=== PATIENT | male | born 1990 | race Caucasian/White ===

== ENCOUNTER 2016-04-04 08:45 | Emergency (ER) | payer BC ==
[~2016-04-04 08:45] MED LIST: ENAL20TA PO; METF-415 PO; PRIL20CA9 PO; PROA1AER INH; novalog
[2016-04-04] MEDS ORDERED: KETOROLAC 30 MG/ML VIAL (J1885) As Ordered ONE (09:39)
[2016-04-04 09:59] LABS: BASO % 0.2 % (0.0-1.0); EOS # 0.1 K/mm3 (0.0-0.50); EOS % 1.1 % (0.0-3.0); LARGE UNSTAINED CELL # 0.2 K/mm3 (0.0-0.4); LARGE UNSTAINED CELL % 1.5 % (0.0-4.0); LYMPH % 20.2 % (24.0-44.0); MEAN CORPUSCULAR HEMOGLOBIN 30.1 pg (27.0-33.0); MEAN CORPUSCULAR HGB CONC 35.5 g/dl (32.0-36.5); MEAN CORPUSCULAR VOLUME 84.8 fl (80.0-96.0); MONO # 0.5 K/mm3 (0.0-0.8); MONO % 5.2 % (0.0-5.0); NEUTROPHILS # 7.1 K/mm3 (1.8-7.7); NEUTROPHILS % 71.7 % (36.0-66.0); PLATELET COUNT, AUTOMATED 263 k/mm3 (150-450); RED CELL DISTRIBUTION WIDTH 12.4 % (11.5-14.5)
[2016-04-04 10:21] LABS: ANION GAP 14 MEQ/L (8-16); BLOOD UREA NITROGEN 9 MG/DL (7-18); CALCIUM LEVEL 9.4 MG/DL (8.5-10.1); CARBON DIOXIDE LEVEL 23 MEQ/L (21-32); CHLORIDE LEVEL 104 MEQ/L (98-107); CREATININE FOR GFR 0.57 MG/DL (0.70-1.30); GLOMERULAR FILTRATION RATE > 60.0 (>60); GLUCOSE, FASTING 148 MG/DL (70-105); MAGNESIUM LEVEL 1.5 MG/DL (1.8-2.4); POTASSIUM SERUM 4.1 MEQ/L (3.5-5.1); SODIUM LEVEL 141 MEQ/L (136-145)
--- NOTE | 2016-04-04 10:29 | REP ---
Clinical: Postoperative pain and swelling . Technique: Ayala scale and color Doppler evaluation using linear high frequency transducer. Findings: Ultrasound examination of the right lower extremity deep venous structures from the common femoral vein to the popliteal vein demonstrates normal compressibility flow and wave patterns in response to respiration and augmentation. There is no evidence for deep venous thrombosis. Impression: No evidence for deep venous thrombosis. Signed by Pierce Trevizo MD 04/04/2016 10:21 A
--- NOTE | 2016-04-04 10:45 | REP ---
RIGHT ANKLE, FOUR VIEWS: HISTORY: Pain. There is no acute fracture or dislocation. The joint space is normal in appearance. IMPRESSION: There is no acute fracture or dislocation. Signed by Mo Gomez MD 04/04/2016 10:46 A
[2016-04-04] MEDS ORDERED: MAGNESIUM SULFATE 1 GM/100 ML D5W BAG (10MG/ML) (J3475) As Ordered ONE (10:49)
[2016-04-04] MEDS ORDERED: methylPREDNISolone INJ 125 MG/2 ML VIAL (J2930) As Ordered ONE (11:25)
[2016-04-04] MEDS ORDERED: NORCO, ANEXSIA 5/325MG TABLET (HYDROcodone/ACETAMINOPHEN) As Ordered ONE (11:25)
--- NOTE | 2016-04-04 13:55 | EDDOCDS ---
Nurse's Notes [facility] Name: Marck Boswell Age: 26 yrs Sex: Male : 1990 Arrival Date: 04/04/2016 Time: 08:45 Bed 7 Private MD: Diagnosis: Gout-right ankle;Pain in right ankle and joints of right foot;Hypomagnesemia Presentation: 04/04 08:56 Presenting complaint: Patient states: patient states his right ankle locked up on him kcs yesterday and he can't walk on it - gold made it worse - heat somewhat better. 3 weeks post gastric bypass and had low magnesium after the bypass. Woke up with the pain initially. Adult Sepsis Screening: The patient does not have new or worsening altered mentation. Patient's respiratory rate is less than 22. Systolic blood pressure is greater than 100. Patient has a qSOFA score of 0- Negative Sepsis Screen. Suicide/Homicide risk assessment- the patient denies having any suicidal and/or homicidal ideations and does not present with any other emotional, behavioral or mental health complaints. Status: Patient is not a sales agent food vending service or dependent. Transition of care: patient was not received from another setting of care. 08:56 Acuity: KASSIDY Level 4 kcs 08:56 Method Of Arrival: Walkin/Carried/Asstd kcs Triage Assessment: 09:03 General: Appears comfortable, well developed, well nourished, well groomed, Behavior is kcs cooperative, pleasant. Pain: Location: right ankle Pain currently is 8 out of 10 on a pain scale. HIV screening NA for this visit Offered previously. Neurological: Level of Consciousness is awake, alert. Respiratory: Airway is patent Respiratory effort is even, unlabored, Respiratory pattern is regular, symmetrical. Derm: Skin is intact, is healthy with good turgor, Skin is dry, Skin is normal. Historical: - Allergies: SULFA (SULFONAMIDES) (Anaphylaxis); Augmentin (Anaphylaxis); PENICILLINS (Anaphylaxis); - Home Meds: 1. enalapril maleate 20 mg Oral tab 1 tab once daily 2. Novolog 100 unit/mL Sub-Q soln before meals sliding scale 3. omeprazole 40 mg Oral cpDR 1 cap once daily 4. multivitamin Oral tab 1 tablet daily 5. Vitamin C 500 mg Oral tab 1,500 mg daily 6. Vitamin B-12 500 mcg Oral tab daily 7. Calcium + Vitamin D 600 mg calcium- 200 unit Oral tab 500 mg daily 8. Vitamin D 2 Oral 44120 unit weekly 9. Iron CR 325 mg Oral daily - PMHx: Diabetes - NIDDM: controlled; Hypertension; GERD; Asthma; - PSHx: Liver Biopsy; cyst removal; Endoscopy, Upper; Gastric Bypass; - Social history: Smoking status: Patient states former smoker of tobacco. No barriers to communication noted, The patient speaks fluent Estonian. - Family history: Not pertinent. - : The pt / caregiver states he / she is not on anticoagulants. Home medication list is obtained from the patient. - Exposure Risk Screening:: None identified. Screenin:40 Screening information is obtained from the patient. Primary language is Estonian. Fall jam1 risk: No risks identified. Assistance ADL's: requires no assistance with activities of daily living. Abuse/DV Screen: The patient / caregiver reports he/she is: not in a situation that causes fear, pain or injury. Nutritional screening: No deficits noted. Exposure Risk Screening: None identified. Advance Directives: Currently, there is no health care proxy. There is no active DNR order. There is no living will. There is no Power of Writer. Advance directive information has not previously been placed in an [facility] record. Further advance directive information is declined. home support is adequate. Assessment: 09:43 General: Appears uncomfortable, Behavior is cooperative. Pain: Location: right Achilles kr3 Pain currently is 8 out of 10 on a pain scale. Aggravated by weight bearing. Respiratory: Respiratory effort is even, unlabored. Derm: Skin is pink, warm & dry. 11:01 General: Received from [facility] via wheelchair. Resp unlabored--color pink. Complains of mcp right foot spasms. IV patent and infusing well--site without any signs of infiltration. . 12:00 General: Appears uncomfortable, Behavior is cooperative. Neurological: No deficits mcp noted. Respiratory: Airway is patent Respiratory effort is even, unlabored. Derm: Skin is pink, warm & dry. Musculoskeletal: Circulation, motion, and sensation intact. 13:00 General: Appears uncomfortable, Behavior is cooperative. Pain: Location: right ankle. mcp Neurological: No deficits noted. Respiratory: Airway is patent Respiratory effort is even, unlabored. Derm: Skin is pink, warm & dry. Musculoskeletal: Circulation, motion, and sensation intact. Vital Signs: 08:50 BP 167 / 76; Pulse 122; Resp 16; Temp 97(O); Pulse Ox 97% ; Weight 94.8 kg; Height 5 cmb ft. 8 in. (172.72 cm); Pain 8/10; 10:59 BP 118 / 55 (auto/); mcp 10:59 Pulse 76 MON; mcp 13:51 BP 128 / 65; Pulse 69; Resp 18; Temp 97.1(O); Pulse Ox 95% on R/A; Pain 5/10; mcp 13:53 Pain 5/10; mcp 08:50 Body Mass Index 31.78 (94.80 kg, 172.72 cm) cmb Vitals: 08:50 Log In Time N/A - ambulance arrival. cmb ED Course: 08:45 Patient visited by Ingrid Hussein, Distance Education Faculty Liaison. deg 08:45 Patient moved to Waiting deg 08:52 Patient moved to Pre RCE cmb 08:59 Triage Initiated kcs 09:04 Patient moved to Triage 3 kcs 09:11 Pricilla Castelan PA-C is PHCP. dt4 09:11 Omar Bob MD is Attending Physician. dt4 09:11 Patient visited by Pricilla Castelan PA-C. dt4 09:29 Patient moved to I5 / M5 kcs 09:38 Uric Acid Sent. kr3 09:38 Creatine Phosphokinase Sent. kr3 09:38 Basic Metabolic Profile Sent. kr3 09:39 CBC with Diff Sent. kr3 09:39 Magnesium Level Sent. kr3 09:39 Inserted saline lock: 20 gauge in left antecubital area and blood collected. The kr3 patient tolerated the procedure well. 09:40 Pt greeted and oriented to ED. Patient advised of names of staff involved in care, jam1 location of call hall, wait times and NPO status. Patient has correct armband on for positive identification. Placed in gown. Bed in low position. Call light in reach. Side rails up X 1. Door closed. 09:43 Patient visited by Giulia Robison RN. kr3 09:44 [facility] Payment Agreement was scanned into [employer] and attached to record. jp5 09:44 The patient / caregiver is instructed regarding the plan of care and ED course. kr3 09:44 No procedures done that require assistance. kr3 10:05 Patient moved to Ultrasound am10 10:19 Patient moved to Radiology am10 10:26 Patient moved to I5 / M5 bh4 10:28 Patient visited by Giulia Robison RN. kr3 10:44 Patient moved to 7 dsf 10:45 Patient visited by Pricilla Castelan PA-C. dt4 10:53 EKG done. (by ED staff). Reviewed by Pricilla Castelan PA-C. ct3 10:55 Patient visited by Aishwarya Zazueta PCA. ct3 10:55 director industrial relations on. Pulse ox on. NIBP on. ct3 11:02 Patient visited by Alicia Garcia RN. mcp 11:02 US Lower Extremity R/O DVT Returned. EDMS 11:02 Ankle, Complete Returned. EDMS 12:08 Patient visited by Gabrielle Jameson PCA. ls3 13:21 Patient visited by Aishwarya Zazueta PCA. ct3 13:25 Your own Physician is Referral Physician. dt4 13:52 Discontinued lock intact, bleeding controlled, pressure dressing applied, No mcp redness/swelling at site. Administered Medications: 09:43 Drug: NS 0.9% 1000 ml [sodium chloride 0.9 % intravenous solution] Route: IV; Rate: kr3 bolus; Site: left antecubital; 09:43 Drug: ketorolac 30 mg [ketorolac 30 mg/mL (1 mL) injection solution (1 mL)] Route: IVP; kr3 Site: left antecubital; 10:28 Follow up: Response: Pain is unchanged, physician notified kr3 11:00 Drug: Magnesium Sulfate 1 grams [magnesium sulfate 1 gram/100 mL in dextrose 5 % mcp intravenous piggyback] {Co-Signature: [email or web address] (Iris Leon RN).} Route: IVPB; Infused Over: 1 hrs; Site: left antecubital; 12:15 Follow up: IV Status: Completed infusion; IV Intake: 100ml mcp 11:33 Drug: Solu-MEDROL 125 mg [Solu-Medrol 500 mg intravenous solution (125 mg)] Route: IVP; mcp Site: left antecubital; 11:33 Drug: HYDROcodone-acetaminophen 1 tabs [hydrocodone 5 mg-acetaminophen 325 mg tablet (1 mcp tabs)] Route: PO; 13:53 Follow up: Pain 07/31 Adult; Response: Pain is decreased mcp Intake: 12:15 IV: 100.00ml; Total: 100.00ml. mcp Order Results: Lab Order: Magnesium Level; SPEC'M 04/04/16 09:37 Test: MAGNESIUM LEVEL; Value: 1.5; Range: 1.8-2.4; Abnormal: Below low normal; Units: MG/DL; Status: F Lab Order: CBC with Diff; SPEC'M 04/04/16 09:37 Test: WHITE BLOOD COUNT; Value: 10.0; Range: 4.0-10.0; Units: K/mm3; Status: F Test: RED BLOOD COUNT; Value: 4.93; Range: 4.30-6.10; Units: M/mm3; Status: F Test: HEMOGLOBIN; Value: 14.8; Range: 14.0-18.0; Units: g/dl; Status: F Test: HEMATOCRIT; Value: 41.8; Range: 42.0-52.0; Abnormal: Below low normal; Units: %; Status: F Test: MEAN CORPUSCULAR VOLUME; Value: 84.8; Range: 80.0-96.0; Units: fl; Status: F Test: MEAN CORPUSCULAR HEMOGLOBIN; Value: 30.1; Range: 27.0-33.0; Units: pg; Status: F Test: MEAN CORPUSCULAR HGB CONC; Value: 35.5; Range: 32.0-36.5; Units: g/dl; Status: F Test: RED CELL DISTRIBUTION WIDTH; Value: 12.4; Range: 11.5-14.5; Units: %; Status: F Test: PLATELET COUNT, AUTOMATED; Value: 263; Range: 150-450; Units: k/mm3; Status: F Test: NEUTROPHILS %; Value: 71.7; Range: 36.0-66.0; Abnormal: Above high normal; Units: %; Status: F Test: LYMPH %; Value: 20.2; Range: 24.0-44.0; Abnormal: Below low normal; Units: %; Status: F Test: MONO %; Value: 5.2; Range: 0.0-5.0; Abnormal: Above high normal; Units: %; Status: F Test: EOS %; Value: 1.1; Range: 0.0-3.0; Units: %; Status: F Test: BASO %; Value: 0.2; Range: 0.0-1.0; Units: %; Status: F Test: LARGE UNSTAINED CELL %; Value: 1.5; Range: 0.0-4.0; Units: %; Status: F Test: NEUTROPHILS #; Value: 7.1; Range: 1.8-7.7; Units: K/mm3; Status: F Test: LYMPH #; Value: 2.0; Range: 1.5-6.5; Units: K/mm3; Status: F Test: MONO #; Value: 0.5; Range: 0.0-0.8; Units: K/mm3; Status: F Test: EOS #; Value: 0.1; Range: 0.0-0.50; Units: K/mm3; Status: F Test: BASO #; Value: 0.0; Range: 0.0-0.2; Units: K/mm3; Status: F Test: LARGE UNSTAINED CELL #; Value: 0.2; Range: 0.0-0.4; Units: K/mm3; Status: F Lab Order: Basic Metabolic Profile; [facility]' 04/04/16 09:37 Test: GLUCOSE, FASTING; Value: 148; Range: 70-105; Abnormal: Above high normal; Units: MG/DL; Status: F Test: BLOOD UREA NITROGEN; Value: 9; Range: 7-18; Units: MG/DL; Status: F Test: CREATININE FOR GFR; Value: 0.57; Range: 0.70-1.30; Abnormal: Below low normal; Units: MG/DL; Status: F Test: GLOMERULAR FILTRATION RATE; Value: > 60.0; Range: >60; Status: F Test: SODIUM LEVEL; Value: 141; Range: 136-145; Units: MEQ/L; Status: F Test: POTASSIUM SERUM; Value: 4.1; Range: 3.5-5.1; Units: MEQ/L; Status: F Test: CHLORIDE LEVEL; Value: 104; Range: 98-107; Units: MEQ/L; Status: F Test: CARBON DIOXIDE LEVEL; Value: 23; Range: 21-32; Units: MEQ/L; Status: F Test: ANION GAP; Value: 14; Range: 8-16; Units: MEQ/L; Status: F Test: CALCIUM LEVEL; Value: 9.4; Range: 8.5-10.1; Units: MG/DL; Status: F Test Note: ; Units are mL/min/1.73 m2 Chronic Kidney Disease Staging per NKF: Stage I & II GFR >=60 Normal to Mildly Decreased Stage III GFR 30-59 Moderately Decreased Stage IV GFR 15-29 Severely Decreased Stage V GFR <15 Very Little GFR Left ESRD GFR <15 on ATTENDANT ARCADE Lab Order: Creatine Phosphokinase; SPEC'M 04/04/16 09:37 Test: CPK CREATINE PHOSPHOKINASE; Value: 33; Range: 39-308; Abnormal: Below low normal; Units: U/L; Status: F Lab Order: Uric Acid; SPEC'M 04/04/16 09:37 Test: URIC ACID; Value: 10.9; Range: 3.5-7.2; Abnormal: Above high normal; Units: MG/DL; Status: F Lab Order: Magnesium Level: PLEASE REDRAW AFTER MAG INFUSION. THANK YOU.; SPEC'M 04/04/16 12:51 Test: MAGNESIUM LEVEL; Value: 1.8; Range: 1.8-2.4; Units: MG/DL; Status: F Radiology Order: US Lower Extremity R/O DVT Test: US Lower Extremity R/O DVT REASON FOR EXAMINATION: RIGHT ANKLE PAIN, POST-OP; Clinical: Postoperative pain and swelling .; ; Technique: Ayala scale and color Doppler evaluation using linear high frequency; transducer.; ; Findings:; Ultrasound examination of the right lower extremity deep venous structures from; the common femoral vein to the popliteal vein demonstrates normal compressibility; flow and wave patterns in response to respiration and augmentation. There is no; evidence for deep venous thrombosis.; ; Impression:; No evidence for deep venous thrombosis.; ; ; Signed by; Pierce Trevizo MD 04/04/2016 10:21 A; Radiology Order: Ankle, Complete Test: Ankle, Complete REASON FOR EXAMINATION: RIGHT ANKLE PAIN; RIGHT ANKLE, FOUR VIEWS:; ; HISTORY: Pain.; ; There is no acute fracture or dislocation. The joint space is normal in; appearance.; ; IMPRESSION:; ; There is no acute fracture or dislocation.; ; ; Signed by; Mo Gomez MD 04/04/2016 10:46 A; Outcome: 13:26 Discharge ordered by Provider. dt4 13:52 Discharge Assessment: patient administered narcotics - yes. Pt provided with safe mcp discharge. The following High Risk Discharge criteria are identified: None. Discharged to home ambulatory, with crutches, with significant other. Condition: stable. Discharge instructions given to patient, Instructed on discharge instructions, follow up and referral plans. medication usage, crutch walking, Demonstrated understanding of instructions, crutch walking, Pt was receptive of discharge instructions/ teaching. Prescriptions given X 2. No special radiology studies were completed. Property sent home with patient. 13:53 Patient left the ED. [facility] Signatures: Dispatcher [employer] EDMS Lindsey Arriaga, RN RN Ingrid De Souza, Distance Education Faculty Liaison Unit deg Alicia Garcia RN RN mcp Murphy, Jane, SUSTAINABILITY SPECIALIST SUSTAINABILITY SPECIALIST jam1 Giulia RobisonRN RN kr3 Elsie Cuevas am10 Robson, Ketty bh4 Aishwarya Zazueta, SUSTAINABILITY SPECIALIST SUSTAINABILITY SPECIALIST ct3 Temi Hull,RN RN dsf Nettie Roberts cmPricilla Larose, PA-C PA-C dt4 Dionisio Etienne jp5 Gabrielle Jameson, SUSTAINABILITY SPECIALIST SUSTAINABILITY SPECIALIST ls3 Iris Leon RN [email or web address] Corrections: (The following items were deleted from the chart) 13:52 09:43 Pain: Location: left Achilles Pain currently is 8 out of 10 on a pain scale. kr3 Aggravated by weight bearing, kr3 MTDD
--- NOTE | 2016-04-04 13:55 | EDDOCDS ---
Physician Documentation [facility] Name: Marck Boswell Age: 26 yrs Sex: Male : 1990 Arrival Date: 04/04/2016 Time: 08:45 Bed 7 Private MD: Disposition: 04/04/16 13:26 Discharged to Home/Self Care. Impression: Gout - right ankle, Pain in right ankle and joints of right foot, Hypomagnesemia. - Condition is Stable. - Discharge Instructions: Gout, Hypomagnesemia. - Prescriptions for [place] 5- 325 mg Oral Tablet - take 1 tablet by ORAL route every 6 hours As needed MDD: 4 tabs; may cause drowsiness. do not take if working/driving/operating machinery; 15 tablet. Prednisone 20 mg Oral Tablet - take 3 tablets by ORAL route once daily for 4 days start on 04/05/16; 12 tablet. - Medication Reconciliation, Local Pharmacy Hours form. - Follow up: Emergency Department; When: As needed; Reason: Worsening of conditions. Follow up: Your own Physician; When: 2 - 3 days; Reason: Wound/Symptom Recheck, Recheck today's complaints, Continuance of care. - Problem is new. - Symptoms have improved. Historical: - Allergies: SULFA (SULFONAMIDES) (Anaphylaxis); Augmentin (Anaphylaxis); PENICILLINS (Anaphylaxis); - Home Meds: 1. enalapril maleate 20 mg Oral tab 1 tab once daily 2. Novolog 100 unit/mL Sub-Q soln before meals sliding scale 3. omeprazole 40 mg Oral cpDR 1 cap once daily 4. multivitamin Oral tab 1 tablet daily 5. Vitamin C 500 mg Oral tab 1,500 mg daily 6. Vitamin B-12 500 mcg Oral tab daily 7. Calcium + Vitamin D 600 mg calcium- 200 unit Oral tab 500 mg daily 8. Vitamin D 2 Oral 70627 unit weekly 9. Iron CR 325 mg Oral daily - PMHx: Diabetes - NIDDM: controlled; Hypertension; GERD; Asthma; - PSHx: Liver Biopsy; cyst removal; Endoscopy, Upper; Gastric Bypass; - Social history: Smoking status: Patient states former smoker of tobacco. No barriers to communication noted, The patient speaks fluent Arabic. - Family history: Not pertinent. - : The pt / caregiver states he / she is not on anticoagulants. Home medication list is obtained from the patient. - Exposure Risk Screening:: None identified. Vital Signs: 04/04 08:50 BP 167 / 76; Pulse 122; Resp 16; Temp 97(O); Pulse Ox 97% ; Weight 94.8 kg / 209 lbs; cmb Height 5 ft. 8 in. (172.72 cm); Pain 8/10; 10:59 BP 118 / 55 (auto/); mcp 10:59 Pulse 76 MON; mcp 13:51 BP 128 / 65; Pulse 69; Resp 18; Temp 97.1(O); Pulse Ox 95% on R/A; Pain 5/10; mcp 13:53 Pain 5/10; mcp 08:50 Body Mass Index 31.78 (94.80 kg, 172.72 cm) cmb MDM: 09:27 IV Saline Lock ordered. dt4 09:27 NS 0.9% 1000 ml IV at bolus once ordered. dt4 09:27 ketorolac 30 mg IVP once ordered. dt4 09:28 Magnesium Level Ordered. EDMS 09:28 CBC with Diff Ordered. EDMS 09:28 Basic Metabolic Profile Ordered. EDMS 09:28 Creatine Phosphokinase Ordered. EDMS 09:28 Uric Acid Ordered. EDMS 09:28 US Lower Extremity R/O DVT Ordered. EDMS 09:28 Ankle, Complete Ordered. EDMS 09:39 Financial registration complete. lg 09:44 [facility] Payment Agreement was scanned into [employer] and attached to record. jp5 10:42 [employer] ordered. dt4 10:42 Magnesium Sulfate 1 grams IVPB once over 1 hrs; administer over at least 1 hour ordered.dt4 10:43 Magnesium Level Reviewed. dt4 10:43 CBC with Diff Reviewed. dt4 10:43 Basic Metabolic Profile Reviewed. dt4 10:43 Creatine Phosphokinase Reviewed. dt4 10:43 Uric Acid Reviewed. dt4 10:44 ECG WITH READING ER PHYS+CARDIAG ordered. EDMS 11:09 Magnesium Level: PLEASE REDRAW AFTER MAG INFUSION. THANK YOU. Ordered. EDMS 11:24 Solu-MEDROL 125 mg IVP once ordered. dt4 11:24 HYDROcodone-acetaminophen 5 mg-325 mg 1 tabs PO once ordered. dt4 13:33 Crutches ordered. dt4 Administered Medications: 09:43 Drug: NS 0.9% 1000 ml [sodium chloride 0.9 % intravenous solution] Route: IV; Rate: kr3 bolus; Site: left antecubital; 09:43 Drug: ketorolac 30 mg [ketorolac 30 mg/mL (1 mL) injection solution (1 mL)] Route: IVP; kr3 Site: left antecubital; 10:28 Follow up: Response: Pain is unchanged, physician notified kr3 11:00 Drug: Magnesium Sulfate 1 grams [magnesium sulfate 1 gram/100 mL in dextrose 5 % mcp intravenous piggyback] {Co-Signature: [email or web address] (Iris Leon RN).} Route: IVPB; Infused Over: 1 hrs; Site: left antecubital; 12:15 Follow up: IV Status: Completed infusion; IV Intake: 100ml mcp 11:33 Drug: Solu-MEDROL 125 mg [Solu-Medrol 500 mg intravenous solution (125 mg)] Route: IVP; mcp Site: left antecubital; 11:33 Drug: HYDROcodone-acetaminophen 1 tabs [hydrocodone 5 mg-acetaminophen 325 mg tablet (1 mcp tabs)] Route: PO; 13:53 Follow up: Pain 5/10 Adult; Response: Pain is decreased [facility] Signatures: Dispatcher [employer] EDMS Lindsey Arriaga RN RN kcs Peters, Mary, RN RN mcp Ganter, LoriLee, Reg Reg lg Tschudi, Diane, PA-C PA-C dt4 Dionisio Etienne jp5 Giulia Robison RN kr3 Iris Leon RN [email or web address] The chart was reviewed and I authenticate all verbal orders and agree with the evaluation and treatment provided.Corrections: (The following items were deleted from the chart) 10:57 10:50 MAGNESIUM LEVEL+LAB ordered. EDMS EDMS Attachments: 09:44 [facility] Payment Agreement jp5 MTDD
--- NOTE | 2016-04-05 07:24 | ECGEPIP ---
Stationary ECG Study [facility] - ED Test Date: 2016-04-04 Pat Name: GRACIE DIAS Department: Room: - Gender: M Leasing Coordinator: ct : 1990 Requested By: FROYLAN Yan PA-C Order Number: [id number] Reading MD: Guerline Otero Measurements Intervals [place] Rate: 79 P: 20 ND: 146 QRS: 38 QRSD: 94 T: -6 QT: 356 QTc: 409 Interpretive Statements SINUS RHYTHM NONSPECIFIC T-WAVE ABNORMALITY SIMILAR 01/11/16 Electronically Signed On 04-05-2016 7:23:47 EST by Guerline Otero
--- NOTE | 2016-04-06 14:54 | EDDOCDS ---
Physician Documentation [facility] Name: Marck Boswell Age: 26 yrs Sex: Male : 1990 Arrival Date: 04/04/2016 Time: 08:45 Bed 7 Private MD: Disposition: 04/04/16 13:26 Discharged to Home/Self Care. Impression: Gout - right ankle, Pain in right ankle and joints of right foot, Hypomagnesemia. - Condition is Stable. - Discharge Instructions: Gout, Hypomagnesemia. - Prescriptions for [place] 5- 325 mg Oral Tablet - take 1 tablet by ORAL route every 6 hours As needed MDD: 4 tabs; may cause drowsiness. do not take if working/driving/operating machinery; 15 tablet. Prednisone 20 mg Oral Tablet - take 3 tablets by ORAL route once daily for 4 days start on 04/05/16; 12 tablet. - Medication Reconciliation, Local Pharmacy Hours form. - Follow up: Emergency Department; When: As needed; Reason: Worsening of conditions. Follow up: Your own Physician; When: 2 - 3 days; Reason: Wound/Symptom Recheck, Recheck today's complaints, Continuance of care. - Problem is new. - Symptoms have improved. Historical: - Allergies: SULFA (SULFONAMIDES) (Anaphylaxis); Augmentin (Anaphylaxis); PENICILLINS (Anaphylaxis); - Home Meds: 1. enalapril maleate 20 mg Oral tab 1 tab once daily 2. Novolog 100 unit/mL Sub-Q soln before meals sliding scale 3. omeprazole 40 mg Oral cpDR 1 cap once daily 4. multivitamin Oral tab 1 tablet daily 5. Vitamin C 500 mg Oral tab 1,500 mg daily 6. Vitamin B-12 500 mcg Oral tab daily 7. Calcium + Vitamin D 600 mg calcium- 200 unit Oral tab 500 mg daily 8. Vitamin D 2 Oral 52827 unit weekly 9. Iron CR 325 mg Oral daily - PMHx: Diabetes - NIDDM: controlled; Hypertension; GERD; Asthma; - PSHx: Liver Biopsy; cyst removal; Endoscopy, Upper; Gastric Bypass; - Social history: Smoking status: Patient states former smoker of tobacco. No barriers to communication noted, The patient speaks fluent Frisian. - Family history: Not pertinent. - : The pt / caregiver states he / she is not on anticoagulants. Home medication list is obtained from the patient. - Exposure Risk Screening:: None identified. Vital Signs: 04/04 08:50 BP 167 / 76; Pulse 122; Resp 16; Temp 97(O); Pulse Ox 97% ; Weight 94.8 kg / 209 lbs; cmb Height 5 ft. 8 in. (172.72 cm); Pain 8/10; 10:59 BP 118 / 55 (auto/); mcp 10:59 Pulse 76 MON; mcp 13:51 BP 128 / 65; Pulse 69; Resp 18; Temp 97.1(O); Pulse Ox 95% on R/A; Pain 5/10; mcp 13:53 Pain 5/10; mcp 08:50 Body Mass Index 31.78 (94.80 kg, 172.72 cm) cmb MDM: 09:27 IV Saline Lock ordered. dt4 09:27 NS 0.9% 1000 ml IV at bolus once ordered. dt4 09:27 ketorolac 30 mg IVP once ordered. dt4 09:28 Magnesium Level Ordered. EDMS 09:28 CBC with Diff Ordered. EDMS 09:28 Basic Metabolic Profile Ordered. EDMS 09:28 Creatine Phosphokinase Ordered. EDMS 09:28 Uric Acid Ordered. EDMS 09:28 US Lower Extremity R/O DVT Ordered. EDMS 09:28 Ankle, Complete Ordered. EDMS 09:39 Financial registration complete. lg 09:44 [facility] Payment Agreement was scanned into [employer] and attached to record. jp5 10:42 Cost Reduction Engineer ordered. dt4 10:42 Magnesium Sulfate 1 grams IVPB once over 1 hrs; administer over at least 1 hour ordered.dt4 10:43 Magnesium Level Reviewed. dt4 10:43 CBC with Diff Reviewed. dt4 10:43 Basic Metabolic Profile Reviewed. dt4 10:43 Creatine Phosphokinase Reviewed. dt4 10:43 Uric Acid Reviewed. dt4 10:44 ECG WITH READING ER PHYS+CARDIAG ordered. EDMS 11:09 Magnesium Level: PLEASE REDRAW AFTER MAG INFUSION. THANK YOU. Ordered. EDMS 11:24 Solu-MEDROL 125 mg IVP once ordered. dt4 11:24 HYDROcodone-acetaminophen 5 mg-325 mg 1 tabs PO once ordered. dt4 13:33 Crutches ordered. dt4 04/05 11:51 T-Sheet-- Draft Copy was scanned into MEDHOST and attached to record. gb 11:51 ECG/EKG was scanned into [employer] and attached to record. 11:52 Radiology Report was scanned into [employer] and attached to record. gb Administered Medications: 04/04 09:43 Drug: NS 0.9% 1000 ml [sodium chloride 0.9 % intravenous solution] Route: IV; Rate: kr3 bolus; Site: left antecubital; 09:43 Drug: ketorolac 30 mg [ketorolac 30 mg/mL (1 mL) injection solution (1 mL)] Route: IVP; kr3 Site: left antecubital; 10:28 Follow up: Response: Pain is unchanged, physician notified kr3 11:00 Drug: Magnesium Sulfate 1 grams [magnesium sulfate 1 gram/100 mL in dextrose 5 % mcp intravenous piggyback] {Co-Signature: [email or web address] (Iris Leon RN).} Route: IVPB; Infused Over: 1 hrs; Site: left antecubital; 12:15 Follow up: IV Status: Completed infusion; IV Intake: 100ml [facility] 11:33 Drug: Solu-MEDROL 125 mg [Solu-Medrol 500 mg intravenous solution (125 mg)] Route: IVP; mcp Site: left antecubital; 11:33 Drug: HYDROcodone-acetaminophen 1 tabs [hydrocodone 5 mg-acetaminophen 325 mg tablet (1 mcp tabs)] Route: PO; 13:53 Follow up: Pain 5/10 Adult; Response: Pain is decreased [facility] Signatures: Dispatcher [employer] EDMS Lindsey Arriaga RN RN kcs Peters, Mary, RN RN [facility] Rafaela Viveros, Reg Reg gb Sanjay Mitchell, Reg Reg lg Pricilla Castelan, PA-C PA-C [email or web address] Dionisio Etienne jp5 Giulia Robison RN kr3 Iris Leon RN [email or web address] The chart was reviewed and I authenticate all verbal orders and agree with the evaluation and treatment provided.Corrections: (The following items were deleted from the chart) 10:57 10:50 MAGNESIUM LEVEL+LAB ordered. EDGA EDMS Attachments: 09:44 [facility] Payment Agreement jp5 04/05 11:51 T-Sheet-- Draft Copy 11:51 ECG/EKG Chart Complete MTDD
--- NOTE | 2016-04-06 14:54 | EDDOCDS ---
Nurse's Notes [facility] Name: Marck Boswell Age: 26 yrs Sex: Male : 1990 Arrival Date: 04/04/2016 Time: 08:45 Bed 7 Private MD: Diagnosis: Gout-right ankle;Pain in right ankle and joints of right foot;Hypomagnesemia Presentation: 04/04 08:56 Presenting complaint: Patient states: patient states his right ankle locked up on him kcs yesterday and he can't walk on it - gold made it worse - heat somewhat better. 3 weeks post gastric bypass and had low magnesium after the bypass. Woke up with the pain initially. Adult Sepsis Screening: The patient does not have new or worsening altered mentation. Patient's respiratory rate is less than 22. Systolic blood pressure is greater than 100. Patient has a qSOFA score of 0- Negative Sepsis Screen. Suicide/Homicide risk assessment- the patient denies having any suicidal and/or homicidal ideations and does not present with any other emotional, behavioral or mental health complaints. Status: Patient is not a pharmaceutical service representative or dependent. Transition of care: patient was not received from another setting of care. 08:56 Acuity: KASSIDY Level 4 kcs 08:56 Method Of Arrival: Walkin/Carried/Asstd kcs Triage Assessment: 09:03 General: Appears comfortable, well developed, well nourished, well groomed, Behavior is kcs cooperative, pleasant. Pain: Location: right ankle Pain currently is 8 out of 10 on a pain scale. HIV screening NA for this visit Offered previously. Neurological: Level of Consciousness is awake, alert. Respiratory: Airway is patent Respiratory effort is even, unlabored, Respiratory pattern is regular, symmetrical. Derm: Skin is intact, is healthy with good turgor, Skin is dry, Skin is normal. Historical: - Allergies: SULFA (SULFONAMIDES) (Anaphylaxis); Augmentin (Anaphylaxis); PENICILLINS (Anaphylaxis); - Home Meds: 1. enalapril maleate 20 mg Oral tab 1 tab once daily 2. Novolog 100 unit/mL Sub-Q soln before meals sliding scale 3. omeprazole 40 mg Oral cpDR 1 cap once daily 4. multivitamin Oral tab 1 tablet daily 5. Vitamin C 500 mg Oral tab 1,500 mg daily 6. Vitamin B-12 500 mcg Oral tab daily 7. Calcium + Vitamin D 600 mg calcium- 200 unit Oral tab 500 mg daily 8. Vitamin D 2 Oral 49704 unit weekly 9. Iron CR 325 mg Oral daily - PMHx: Diabetes - NIDDM: controlled; Hypertension; GERD; Asthma; - PSHx: Liver Biopsy; cyst removal; Endoscopy, Upper; Gastric Bypass; - Social history: Smoking status: Patient states former smoker of tobacco. No barriers to communication noted, The patient speaks fluent Turkmen. - Family history: Not pertinent. - : The pt / caregiver states he / she is not on anticoagulants. Home medication list is obtained from the patient. - Exposure Risk Screening:: None identified. Screenin:40 Screening information is obtained from the patient. Primary language is Turkmen. Fall jam1 risk: No risks identified. Assistance ADL's: requires no assistance with activities of daily living. Abuse/DV Screen: The patient / caregiver reports he/she is: not in a situation that causes fear, pain or injury. Nutritional screening: No deficits noted. Exposure Risk Screening: None identified. Advance Directives: Currently, there is no health care proxy. There is no active DNR order. There is no living will. There is no Power of Willow Machine Operator. Advance directive information has not previously been placed in an [facility] medical record. Further advance directive information is declined. home support is adequate. Assessment: 09:43 General: Appears uncomfortable, Behavior is cooperative. Pain: Location: right Achilles kr3 Pain currently is 8 out of 10 on a pain scale. Aggravated by weight bearing. Respiratory: Respiratory effort is even, unlabored. Derm: Skin is pink, warm & dry. 11:01 General: Received from [facility] via wheelchair. Resp unlabored--color pink. Complains of mcp right foot spasms. IV patent and infusing well--site without any signs of infiltration. . 12:00 General: Appears uncomfortable, Behavior is cooperative. Neurological: No deficits mcp noted. Respiratory: Airway is patent Respiratory effort is even, unlabored. Derm: Skin is pink, warm & dry. Musculoskeletal: Circulation, motion, and sensation intact. 13:00 General: Appears uncomfortable, Behavior is cooperative. Pain: Location: right ankle. mcp Neurological: No deficits noted. Respiratory: Airway is patent Respiratory effort is even, unlabored. Derm: Skin is pink, warm & dry. Musculoskeletal: Circulation, motion, and sensation intact. Vital Signs: 08:50 BP 167 / 76; Pulse 122; Resp 16; Temp 97(O); Pulse Ox 97% ; Weight 94.8 kg; Height 5 cmb ft. 8 in. (172.72 cm); Pain 8/10; 10:59 BP 118 / 55 (auto/); mcp 10:59 Pulse 76 MON; mcp 13:51 BP 128 / 65; Pulse 69; Resp 18; Temp 97.1(O); Pulse Ox 95% on R/A; Pain 5/10; mcp 13:53 Pain 5/10; mcp 08:50 Body Mass Index 31.78 (94.80 kg, 172.72 cm) cmb Vitals: 08:50 Log In Time N/A - ambulance arrival. cmb ED Course: 08:45 Patient visited by Ingrid Hussein, Roof Assembler. deg 08:45 Patient moved to Waiting deg 08:52 Patient moved to Pre RCE cmb 08:59 Triage Initiated kcs 09:04 Patient moved to Triage 3 kcs 09:11 Pricilla Castelan PA-C is PHCP. dt4 09:11 Omar Bob MD is Attending Physician. dt4 09:11 Patient visited by Pricilla Castelan PA-C. dt4 09:29 Patient moved to I5 / M5 kcs 09:38 Uric Acid Sent. kr3 09:38 Creatine Phosphokinase Sent. kr3 09:38 Basic Metabolic Profile Sent. kr3 09:39 CBC with Diff Sent. kr3 09:39 Magnesium Level Sent. kr3 09:39 Inserted saline lock: 20 gauge in left antecubital area and blood collected. The kr3 patient tolerated the procedure well. 09:40 Pt greeted and oriented to ED. Patient advised of names of staff involved in care, jam1 location of call hall, wait times and NPO status. Patient has correct armband on for positive identification. Placed in gown. Bed in low position. Call light in reach. Side rails up X 1. Door closed. 09:43 Patient visited by Giulia Robison RN. kr3 09:44 [facility] [place] Agreement was scanned into [employer] and attached to record. jp5 09:44 The patient / caregiver is instructed regarding the plan of care and ED course. kr3 09:44 No procedures done that require assistance. kr3 10:05 Patient moved to Ultrasound am10 10:19 Patient moved to Radiology am10 10:26 Patient moved to I5 / M5 bh4 10:28 Patient visited by Giulia Robison RN. kr3 10:44 Patient moved to 7 dsf 10:45 Patient visited by Pricilla Castelan PA-C. dt4 10:53 EKG done. (by ED staff). Reviewed by Pricilla Castelan PA-C. ct3 10:55 Patient visited by Aishwarya Zazueta PCA. ct3 10:55 monitoring coordinator on. Pulse ox on. NIBP on. ct3 11:02 Patient visited by Aliica Garcia RN. mcp 11:02 US Lower Extremity R/O DVT Returned. EDMS 11:02 Ankle, Complete Returned. EDMS 12:08 Patient visited by Gabrielle Jameson PCA. ls3 13:21 Patient visited by Aishwarya Zazueta PCA. ct3 13:25 Your own Physician is Referral Physician. dt4 13:52 Discontinued lock intact, bleeding controlled, pressure dressing applied, No mcp redness/swelling at site. 04/05 07:41 EKG-ADULT Returned. EDMS 11:51 T-Sheet-- Draft Copy was scanned into [employer] and attached to record. gb 11:51 ECG/EKG was scanned into [employer] and attached to record. gb 11:52 Radiology Report was scanned into [employer] and attached to record. gb Administered Medications: 04/04 09:43 Drug: NS 0.9% 1000 ml [sodium chloride 0.9 % intravenous solution] Route: IV; Rate: kr3 bolus; Site: left antecubital; 09:43 Drug: ketorolac 30 mg [ketorolac 30 mg/mL (1 mL) injection solution (1 mL)] Route: IVP; kr3 Site: left antecubital; 10:28 Follow up: Response: Pain is unchanged, physician notified kr3 11:00 Drug: Magnesium Sulfate 1 grams [magnesium sulfate 1 gram/100 mL in dextrose 5 % mcp intravenous piggyback] {Co-Signature: [email or web address] (Iris Leon RN).} Route: IVPB; Infused Over: 1 hrs; Site: left antecubital; 12:15 Follow up: IV Status: Completed infusion; IV Intake: 100ml [facility] 11:33 Drug: Solu-MEDROL 125 mg [Solu-Medrol 500 mg intravenous solution (125 mg)] Route: IVP; mcp Site: left antecubital; 11:33 Drug: HYDROcodone-acetaminophen 1 tabs [hydrocodone 5 mg-acetaminophen 325 mg tablet (1 mcp tabs)] Route: PO; 13:53 Follow up: Pain 07/31 Adult; Response: Pain is decreased mcp Intake: 12:15 IV: 100.00ml; Total: 100.00ml. mcp Order Results: Lab Order: Magnesium Level; SPEC'M 04/04/16 09:37 Test: MAGNESIUM LEVEL; Value: 1.5; Range: 1.8-2.4; Abnormal: Below low normal; Units: MG/DL; Status: F Lab Order: CBC with Diff; SPEC'M 04/04/16 09:37 Test: WHITE BLOOD COUNT; Value: 10.0; Range: 4.0-10.0; Units: K/mm3; Status: F Test: RED BLOOD COUNT; Value: 4.93; Range: 4.30-6.10; Units: M/mm3; Status: F Test: HEMOGLOBIN; Value: 14.8; Range: 14.0-18.0; Units: g/dl; Status: F Test: HEMATOCRIT; Value: 41.8; Range: 42.0-52.0; Abnormal: Below low normal; Units: %; Status: F Test: MEAN CORPUSCULAR VOLUME; Value: 84.8; Range: 80.0-96.0; Units: fl; Status: F Test: MEAN CORPUSCULAR HEMOGLOBIN; Value: 30.1; Range: 27.0-33.0; Units: pg; Status: F Test: MEAN CORPUSCULAR HGB CONC; Value: 35.5; Range: 32.0-36.5; Units: g/dl; Status: F Test: RED CELL DISTRIBUTION WIDTH; Value: 12.4; Range: 11.5-14.5; Units: %; Status: F Test: PLATELET COUNT, AUTOMATED; Value: 263; Range: 150-450; Units: k/mm3; Status: F Test: NEUTROPHILS %; Value: 71.7; Range: 36.0-66.0; Abnormal: Above high normal; Units: %; Status: F Test: LYMPH %; Value: 20.2; Range: 24.0-44.0; Abnormal: Below low normal; Units: %; Status: F Test: MONO %; Value: 5.2; Range: 0.0-5.0; Abnormal: Above high normal; Units: %; Status: F Test: EOS %; Value: 1.1; Range: 0.0-3.0; Units: %; Status: F Test: BASO %; Value: 0.2; Range: 0.0-1.0; Units: %; Status: F Test: LARGE UNSTAINED CELL %; Value: 1.5; Range: 0.0-4.0; Units: %; Status: F Test: NEUTROPHILS #; Value: 7.1; Range: 1.8-7.7; Units: K/mm3; Status: F Test: LYMPH #; Value: 2.0; Range: 1.5-6.5; Units: K/mm3; Status: F Test: MONO #; Value: 0.5; Range: 0.0-0.8; Units: K/mm3; Status: F Test: EOS #; Value: 0.1; Range: 0.0-0.50; Units: K/mm3; Status: F Test: BASO #; Value: 0.0; Range: 0.0-0.2; Units: K/mm3; Status: F Test: LARGE UNSTAINED CELL #; Value: 0.2; Range: 0.0-0.4; Units: K/mm3; Status: F Lab Order: Basic Metabolic Profile; SPEC'M 04/04/16 09:37 Test: GLUCOSE, FASTING; Value: 148; Range: 70-105; Abnormal: Above high normal; Units: MG/DL; Status: F Test: BLOOD UREA NITROGEN; Value: 9; Range: 7-18; Units: MG/DL; Status: F Test: CREATININE FOR GFR; Value: 0.57; Range: 0.70-1.30; Abnormal: Below low normal; Units: MG/DL; Status: F Test: GLOMERULAR FILTRATION RATE; Value: > 60.0; Range: >60; Status: F Test: SODIUM LEVEL; Value: 141; Range: 136-145; Units: MEQ/L; Status: F Test: POTASSIUM SERUM; Value: 4.1; Range: 3.5-5.1; Units: MEQ/L; Status: F Test: CHLORIDE LEVEL; Value: 104; Range: 98-107; Units: MEQ/L; Status: F Test: CARBON DIOXIDE LEVEL; Value: 23; Range: 21-32; Units: MEQ/L; Status: F Test: ANION GAP; Value: 14; Range: 8-16; Units: MEQ/L; Status: F Test: CALCIUM LEVEL; Value: 9.4; Range: 8.5-10.1; Units: MG/DL; Status: F Test Note: ; Units are mL/min/1.73 m2 Chronic Kidney Disease Staging per NKF: Stage I & II GFR >=60 Normal to Mildly Decreased Stage III GFR 30-59 Moderately Decreased Stage IV GFR 15-29 Severely Decreased Stage V GFR <15 Very Little GFR Left ESRD GFR <15 on VOLLEYBALL ASSEMBLER Lab Order: Creatine Phosphokinase; SPEC'M 04/04/16 09:37 Test: CPK CREATINE PHOSPHOKINASE; Value: 33; Range: 39-308; Abnormal: Below low normal; Units: U/L; Status: F Lab Order: Uric Acid; SPEC'M 04/04/16 09:37 Test: URIC ACID; Value: 10.9; Range: 3.5-7.2; Abnormal: Above high normal; Units: MG/DL; Status: F Lab Order: Magnesium Level: PLEASE REDRAW AFTER MAG INFUSION. THANK YOU.; SPEC'M 04/04/16 12:51 Test: MAGNESIUM LEVEL; Value: 1.8; Range: 1.8-2.4; Units: MG/DL; Status: F Radiology Order: US Lower Extremity R/O DVT Test: US Lower Extremity R/O DVT REASON FOR EXAMINATION: RIGHT ANKLE PAIN, POST-OP; Clinical: Postoperative pain and swelling .; ; Technique: Ayala scale and color Doppler evaluation using linear high frequency; transducer.; ; Findings:; Ultrasound examination of the right lower extremity deep venous structures from; the common femoral vein to the popliteal vein demonstrates normal compressibility; flow and wave patterns in response to respiration and augmentation. There is no; evidence for deep venous thrombosis.; ; Impression:; No evidence for deep venous thrombosis.; ; ; Signed by; Pierce Trevizo MD 04/04/2016 10:21 A; Radiology Order: Ankle, Complete Test: Ankle, Complete REASON FOR EXAMINATION: RIGHT ANKLE PAIN; RIGHT ANKLE, FOUR VIEWS:; ; HISTORY: Pain.; ; There is no acute fracture or dislocation. 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 dt4 13:52 Discharge Assessment: patient administered narcotics - yes. Pt provided with safe mcp discharge. The following High Risk Discharge criteria are identified: None. Discharged to home ambulatory, with crutches, with significant other. Condition: stable. Discharge instructions given to patient, Instructed on discharge instructions, follow up and referral plans. medication usage, crutch walking, Demonstrated understanding of instructions, crutch walking, Pt was receptive of discharge instructions/ teaching. Prescriptions given X 2. No special radiology studies were completed. Property sent home with patient. 13:53 Patient left the ED. [facility] Signatures: Dispatcher [employer] EDLindsey Jama, RN RN Ingrid De Souza, Roof Assembler Unit deg Alicia Garcia RN RN mcp Murphy, Jane, JENNIFER COMPUTER PROJECT MANAGER jam1 Rafaela Viveros, Reg Reg Giulia Daniels RN RN kr3 Elsie Cuevas am10 Ketty Chance bh4 Aishwarya Zazueta, COMPUTER PROJECT MANAGER COMPUTER PROJECT MANAGER ct3 Temi Hull,RN RN Nettie Parr cmb Pricilla Castelan PA-C PAVitaliy dt4 Dionisio Etienne jp5 Gabrielle Jameson, COMPUTER PROJECT MANAGER COMPUTER PROJECT MANAGER ls3 Iris Leon RN [email or web address] Corrections: (The following items were deleted from the chart) 13:52 09:43 Pain: Location: left Achilles Pain currently is 8 out of 10 on a pain scale. kr3 Aggravated by weight bearing, kr3 Chart Complete MTDD
--- NOTE | 2016-04-06 14:54 | EDDOCDS ---
Physician Documentation [facility] Name: Marck Boswell Age: 26 yrs Sex: Male : 1990 Arrival Date: 04/04/2016 Time: 08:45 Bed 7 Private MD: Disposition: 04/04/16 13:26 Discharged to Home/Self Care. Impression: Gout - right ankle, Pain in right ankle and joints of right foot, Hypomagnesemia. - Condition is Stable. - Discharge Instructions: Gout, Hypomagnesemia. - Prescriptions for [place] 5- 325 mg Oral Tablet - take 1 tablet by ORAL route every 6 hours As needed MDD: 4 tabs; may cause drowsiness. do not take if working/driving/operating machinery; 15 tablet. Prednisone 20 mg Oral Tablet - take 3 tablets by ORAL route once daily for 4 days start on 04/05/16; 12 tablet. - Medication Reconciliation, Local Pharmacy Hours form. - Follow up: Emergency Department; When: As needed; Reason: Worsening of conditions. Follow up: Your own Physician; When: 2 - 3 days; Reason: Wound/Symptom Recheck, Recheck today's complaints, Continuance of care. - Problem is new. - Symptoms have improved. Historical: - Allergies: SULFA (SULFONAMIDES) (Anaphylaxis); Augmentin (Anaphylaxis); PENICILLINS (Anaphylaxis); - Home Meds: 1. enalapril maleate 20 mg Oral tab 1 tab once daily 2. Novolog 100 unit/mL Sub-Q soln before meals sliding scale 3. omeprazole 40 mg Oral cpDR 1 cap once daily 4. multivitamin Oral tab 1 tablet daily 5. Vitamin C 500 mg Oral tab 1,500 mg daily 6. Vitamin B-12 500 mcg Oral tab daily 7. Calcium + Vitamin D 600 mg calcium- 200 unit Oral tab 500 mg daily 8. Vitamin D 2 Oral 22250 unit weekly 9. Iron CR 325 mg Oral daily - PMHx: Diabetes - NIDDM: controlled; Hypertension; GERD; Asthma; - PSHx: Liver Biopsy; cyst removal; Endoscopy, Upper; Gastric Bypass; - Social history: Smoking status: Patient states former smoker of tobacco. No barriers to communication noted, The patient speaks fluent Urdu. - Family history: Not pertinent. - : The pt / caregiver states he / she is not on anticoagulants. Home medication list is obtained from the patient. - Exposure Risk Screening:: None identified. Vital Signs: 04/04 08:50 BP 167 / 76; Pulse 122; Resp 16; Temp 97(O); Pulse Ox 97% ; Weight 94.8 kg / 209 lbs; cmb Height 5 ft. 8 in. (172.72 cm); Pain 8/10; 10:59 BP 118 / 55 (auto/); mcp 10:59 Pulse 76 MON; mcp 13:51 BP 128 / 65; Pulse 69; Resp 18; Temp 97.1(O); Pulse Ox 95% on R/A; Pain 5/10; mcp 13:53 Pain 5/10; mcp 08:50 Body Mass Index 31.78 (94.80 kg, 172.72 cm) cmb MDM: 09:27 IV Saline Lock ordered. dt4 09:27 NS 0.9% 1000 ml IV at bolus once ordered. dt4 09:27 ketorolac 30 mg IVP once ordered. dt4 09:28 Magnesium Level Ordered. EDMS 09:28 CBC with Diff Ordered. EDMS 09:28 Basic Metabolic Profile Ordered. EDMS 09:28 Creatine Phosphokinase Ordered. EDMS 09:28 Uric Acid Ordered. EDMS 09:28 US Lower Extremity R/O DVT Ordered. EDMS 09:28 Ankle, Complete Ordered. EDMS 09:39 Financial registration complete. lg 09:44 [facility] Payment Agreement was scanned into [employer] and attached to record. jp5 10:42 Process Chemist ordered. dt4 10:42 Magnesium Sulfate 1 grams IVPB once over 1 hrs; administer over at least 1 hour ordered.dt4 10:43 Magnesium Level Reviewed. dt4 10:43 CBC with Diff Reviewed. dt4 10:43 Basic Metabolic Profile Reviewed. dt4 10:43 Creatine Phosphokinase Reviewed. dt4 10:43 Uric Acid Reviewed. dt4 10:44 ECG WITH READING ER PHYS+CARDIAG ordered. EDMS 11:09 Magnesium Level: PLEASE REDRAW AFTER MAG INFUSION. THANK YOU. Ordered. EDMS 11:24 Solu-MEDROL 125 mg IVP once ordered. dt4 11:24 HYDROcodone-acetaminophen 5 mg-325 mg 1 tabs PO once ordered. dt4 13:33 Crutches ordered. dt4 04/05 11:51 T-Sheet-- Draft Copy was scanned into [employer] and attached to record. gb 11:51 ECG/EKG was scanned into [employer] and attached to record. 11:52 Radiology Report was scanned into [employer] and attached to record. gb Administered Medications: 04/04 09:43 Drug: NS 0.9% 1000 ml [sodium chloride 0.9 % intravenous solution] Route: IV; Rate: kr3 bolus; Site: left antecubital; 09:43 Drug: ketorolac 30 mg [ketorolac 30 mg/mL (1 mL) injection solution (1 mL)] Route: IVP; kr3 Site: left antecubital; 10:28 Follow up: Response: Pain is unchanged, physician notified kr3 11:00 Drug: Magnesium Sulfate 1 grams [magnesium sulfate 1 gram/100 mL in dextrose 5 % mcp intravenous piggyback] {Co-Signature: [email or web address] (Iris Leon RN).} Route: IVPB; Infused Over: 1 hrs; Site: left antecubital; 12:15 Follow up: IV Status: Completed infusion; IV Intake: 100ml [facility] 11:33 Drug: Solu-MEDROL 125 mg [Solu-Medrol 500 mg intravenous solution (125 mg)] Route: IVP; mcp Site: left antecubital; 11:33 Drug: HYDROcodone-acetaminophen 1 tabs [hydrocodone 5 mg-acetaminophen 325 mg tablet (1 mcp tabs)] Route: PO; 13:53 Follow up: Pain 5/10 Adult; Response: Pain is decreased [facility] Signatures: Dispatcher [employer] EDMS Lindsey Arriaga RN RN kcs Peters, Mary, RN RN [facility] Rafaela Viveros, Reg Reg gb Sanjay Mitchell, Reg Reg lg Pricilla Castelan, PA-C PA-C [email or web address] Dionisio Etienne jp5 Giulia Robison RN kr3 Iris Leon RN [id number] The chart was reviewed and I authenticate all verbal orders and agree with the evaluation and treatment provided.Corrections: (The following items were deleted from the chart) 10:57 10:50 MAGNESIUM LEVEL+LAB ordered. EDNV EDMS Attachments: 09:44 [facility] Payment Agreement jp5 04/05 11:51 T-Sheet-- Draft Copy 11:51 ECG/EKG Chart Complete MTDD
== END 2016-04-04 13:53 | disposition home or self-care (01) ==
LOC: M ED 08:45
DX: E83.42 Hypomagnesemia (principal); M10.071 Idiopathic gout, right ankle and foot; M25.571 Pain in right ankle and joints of right foot; E11.9 Type 2 diabetes mellitus without complications; I10 Essential (primary) hypertension; J45.909 Unspecified asthma, uncomplicated; K21.9 Gastro-esophageal reflux disease without esophagitis; Z98.84 Bariatric surgery status; Z87.891 Personal history of nicotine dependence; Z79.899 Other long term (current) drug therapy; Z79.4 Long term (current) use of insulin; Z88.2 Allergy status to sulfonamides; Z88.1 Allergy status to other antibiotic agents; Z88.0 Allergy status to penicillin
CPT/HCPCS: 36415; 73610; 80048; 82550; 83735; 84550; 85025; 93005; 93041; 93971; 96365; 96375; 99285; J1885; J2930; J3475

== ENCOUNTER → 2016-04-26 | Outpatient (CLI) | payer BC ==
[2016-04-26 10:55] LABS: ANION GAP 8 MEQ/L (8-16); BLOOD UREA NITROGEN 6 MG/DL (7-18); CARBON DIOXIDE LEVEL 31 MEQ/L (21-32); CHLORIDE LEVEL 107 MEQ/L (98-107); CREATININE FOR GFR 0.55 MG/DL (0.70-1.30); GLOMERULAR FILTRATION RATE > 60.0 (>60); GLUCOSE, FASTING 137 MG/DL (70-105); MAGNESIUM LEVEL 1.6 MG/DL (1.8-2.4); POTASSIUM SERUM 3.5 MEQ/L (3.5-5.1); SODIUM LEVEL 146 MEQ/L (136-145); URIC ACID 7.7 MG/DL (3.5-7.2)
== END ==
LOC: M LAB 10:09
PROVIDERS: ATTEND Nurse Practitioner Family
DX: E83.42 Hypomagnesemia (principal); E79.0 Hyperuricemia without signs of inflammatory arthritis and tophaceous disease

== ENCOUNTER → 2016-07-31 | Outpatient (CLI) | payer BC ==
[2016-07-31 12:15] LABS: BASO % 0.3 % (0.0-1.0); EOS # 0.1 K/mm3 (0.0-0.50); EOS % 1.5 % (0.0-3.0); LARGE UNSTAINED CELL # 0.3 K/mm3 (0.0-0.4); LARGE UNSTAINED CELL % 3.2 % (0.0-4.0); LYMPH # 2.7 K/mm3 (1.5-6.5); LYMPH % 28.2 % (24.0-44.0); MEAN CORPUSCULAR HEMOGLOBIN 31.1 pg (27.0-33.0); MEAN CORPUSCULAR HGB CONC 34.7 g/dl (32.0-36.5); MEAN CORPUSCULAR VOLUME 89.8 fl (80.0-96.0); MONO # 0.5 K/mm3 (0.0-0.8); MONO % 4.8 % (0.0-5.0); NEUTROPHILS # 5.9 K/mm3 (1.8-7.7); PLATELET COUNT, AUTOMATED 270 k/mm3 (150-450); RED CELL DISTRIBUTION WIDTH 12.2 % (11.5-14.5); WHITE BLOOD COUNT 9.6 K/mm3 (4.0-10.0)
[2016-07-31 12:44] LABS: ALBUMIN 3.7 GM/DL (3.2-5.2); ALBUMIN/GLOBULIN RATIO 1.19 (1.00-1.93); ALKALINE PHOSPHATASE 98 U/L (45-117); ALT/SGPT 27 U/L (12-78); ANION GAP 6 MEQ/L (8-16); AST/SGOT 13 U/L (15-37); BILIRUBIN,TOTAL 0.5 MG/DL (0.2-1.0); BLOOD UREA NITROGEN 9 MG/DL (7-18); CARBON DIOXIDE LEVEL 31 MEQ/L (21-32); CHLORIDE LEVEL 106 MEQ/L (98-107); CREATININE FOR GFR 0.54 MG/DL (0.70-1.30); GLOMERULAR FILTRATION RATE > 60.0 (>60); GLUCOSE, FASTING 113 MG/DL (70-105); MAGNESIUM LEVEL 1.9 MG/DL (1.8-2.4); POTASSIUM SERUM 3.8 MEQ/L (3.5-5.1); SODIUM LEVEL 143 MEQ/L (136-145); TOTAL PROTEIN 6.8 GM/DL (6.4-8.2); URIC ACID 6.8 MG/DL (3.5-7.2)
[2016-07-31 12:48] LABS: VITAMIN B12 LEVEL 1913 PG/ML (247-911)
== END ==
LOC: M LAB 11:26
PROVIDERS: ATTEND Nurse Practitioner Family
DX: K21.9 Gastro-esophageal reflux disease without esophagitis (principal); R53.1 Weakness; E83.42 Hypomagnesemia; E79.0 Hyperuricemia without signs of inflammatory arthritis and tophaceous disease; I10 Essential (primary) hypertension

== ENCOUNTER 2016-09-20 15:25 | Emergency (ER) | payer BC, OTHER ==
[~2016-09-20] VITALS: Ht 162.6 cm; Wt 79.5 kg
[~2016-09-20 15:25] MED LIST changes: -PROA1AER INH; +PROAAER10 INH
[2016-09-20 16:33] LABS: BASO % 0.4 % (0.0-1.0); EOS # 0.2 K/mm3 (0.0-0.50); LARGE UNSTAINED CELL # 0.1 K/mm3 (0.0-0.4); LARGE UNSTAINED CELL % 1.6 % (0.0-4.0); LYMPH # 2.4 K/mm3 (1.5-6.5); LYMPH % 29.1 % (24.0-44.0); MEAN CORPUSCULAR HEMOGLOBIN 31.2 pg (27.0-33.0); MEAN CORPUSCULAR HGB CONC 35.4 g/dl (32.0-36.5); MEAN CORPUSCULAR VOLUME 88.1 fl (80.0-96.0); MONO # 0.4 K/mm3 (0.0-0.8); MONO % 5.4 % (0.0-5.0); NEUTROPHILS # 4.7 K/mm3 (1.8-7.7); NEUTROPHILS % 61.5 % (36.0-66.0); PLATELET COUNT, AUTOMATED 242 k/mm3 (150-450); RED CELL DISTRIBUTION WIDTH 12.8 % (11.5-14.5); WHITE BLOOD COUNT 7.7 K/mm3 (4.0-10.0)
[2016-09-20 16:55] LABS: ALBUMIN 4.1 GM/DL (3.2-5.2); ALBUMIN/GLOBULIN RATIO 1.24 (1.00-1.93); ALKALINE PHOSPHATASE 117 U/L (45-117); ALT/SGPT 40 U/L (12-78); ANION GAP 7 MEQ/L (8-16); AST/SGOT 15 U/L (15-37); BILIRUBIN,TOTAL 0.5 MG/DL (0.2-1.0); BLOOD UREA NITROGEN 11 MG/DL (7-18); CALCIUM LEVEL 9.6 MG/DL (8.5-10.1); CARBON DIOXIDE LEVEL 30 MEQ/L (21-32); CHLORIDE LEVEL 103 MEQ/L (98-107); CREATININE FOR GFR 0.55 MG/DL (0.70-1.30); GLOMERULAR FILTRATION RATE > 60.0 (>60); GLUCOSE, FASTING 121 MG/DL (70-105); POTASSIUM SERUM 4.2 MEQ/L (3.5-5.1); SODIUM LEVEL 140 MEQ/L (136-145); TOTAL PROTEIN 7.4 GM/DL (6.4-8.2)
[2016-09-20] MEDS ORDERED: MULT1TAB18 PO (17:00)
[2016-09-20] MEDS ORDERED: ADACEL/BOOSTRIX VACCINE (DIPHTH/PERTUSS/ACELL/TETANUS)0.5ML SYR (90715) IM ONE (17:00)
[2016-09-20] MEDS: EXPOSURE KIT-ADULT 7 DAY SUPPLY PO ONE ×4 (17:00→18:10)
[2016-09-20 17:08] LABS: CONTROL LINE INT CTR LINE PRESENT
--- NOTE | 2016-09-20 18:27 | ED PDOC ---
Post-Departure Follow-Up AFTER DISCUSSING WITH PT THE SIDE EFFECTS OF MEDS FOR HIV, PT IN AGREEMENT TO TAKE THEM, UNDER THE IMPRESSION THAT THE PT WAS POSITIVE. SPOKE WITH DR. OSBORNE WHO HAD CARED FOR THE SOURCE PT AND AGREED THAT THIS PT DOES NOT NEED TO TAKE THE ANTI-VIRAL MEDS AT THIS TIME. CONSENT WAS ALREADY SIGNED TO TAKE THESE MEDS AND THE MEDS WERE ALREADY PULLED FROM THE PHARMACY. SPOKE WITH GAYLE AGUIRRE, LEAD WAREHOUSE ASSOCIATE AT THAT TIME AND SHE INFORMED ME THAT SHE CAN RETURN THE MEDS TO THE PHARMACY. PT VOICED UNDERSTANDING AND AGREEMENT OF TREATMENT PLAN AND FOLLOW UP AT THIS TIME. FROYLAN GARZA PA-C Sep 20, 2016 18:27
[2016-09-20 18:33] VITALS: BP 126/69
[2016-09-23 10:06] LABS: HEPATITIS B SURFACE ANTIBODY NEGATIVE (POSITIVE)
[2017-01-16] MEDS ORDERED: NORCOTAB PO (00:54)
== END 2016-09-20 19:31 | disposition home or self-care (01) ==
LOC: M ED 15:25
DX: Z77.21 Contact with and (suspected) exposure to potentially hazardous body fluids (principal); X58.XXXA Exposure to other specified factors, initial encounter; Y92.89 Other specified places as the place of occurrence of the external cause; Y99.0 Civilian activity done for income or pay; Y93.89 Activity, other specified; J45.909 Unspecified asthma, uncomplicated; Z98.84 Bariatric surgery status; Z79.899 Other long term (current) drug therapy; Z88.0 Allergy status to penicillin; Z88.2 Allergy status to sulfonamides

== ENCOUNTER → 2016-10-28 | Outpatient (CLI) | payer BC ==
[~2016-10-28] MED LIST changes: +MULT1TAB18 PO; +NORCOTAB PO
[2016-10-28 14:25] LABS: HEPATITIS B SURFACE ANTIBODY POSITIVE (POSITIVE)
== END ==
LOC: M WUC 10:54
PROVIDERS: ATTEND Internal Medicine Infectious Disease
DX: Z20.5 Contact with and (suspected) exposure to viral hepatitis (principal)

== ENCOUNTER → 2017-01-06 | Outpatient (CLI) | payer BC ==
[2017-01-06 13:57] LABS: HEPATITIS B SURFACE ANTIBODY POSITIVE (POSITIVE)
== END ==
LOC: M WUC 12:00
PROVIDERS: ATTEND Internal Medicine Infectious Disease
DX: Z20.5 Contact with and (suspected) exposure to viral hepatitis (principal)

== ENCOUNTER → 2017-05-30 | Outpatient (CLI) | payer BC ==
[2017-05-30 10:44] LABS: HEMATOCRIT 40.9 % (42.0-52.0); HEMOGLOBIN 14.3 g/dl (14.0-18.0); MEAN CORPUSCULAR HEMOGLOBIN 30.2 pg (27.0-33.0); MEAN CORPUSCULAR VOLUME 86.3 fl (80.0-96.0); PLATELET COUNT, AUTOMATED 236 10^3/uL (150-450); RED BLOOD COUNT 4.74 10^6/uL (4.30-6.10); RED CELL DISTRIBUTION WIDTH 11.5 % (11.5-14.5); WHITE BLOOD COUNT 5.9 10^3/uL (4.0-10.0)
[2017-05-30 10:56] LABS: ESTIMATED AVERAGE GLUCOSE 114 MG/DL (60-110); HEMOGLOBIN A1c 5.6 %
[2017-05-30 11:05] LABS: ALBUMIN 4.2 GM/DL (3.2-5.2); ALKALINE PHOSPHATASE 108 U/L (45-117); ALT/SGPT 33 U/L (12-78); ANION GAP 5 MEQ/L (8-16); AST/SGOT 14 U/L (7-37); BILIRUBIN,TOTAL 0.6 MG/DL (0.2-1.0); BLOOD UREA NITROGEN 14 MG/DL (7-18); CALCIUM LEVEL 9.1 MG/DL (8.5-10.1); CARBON DIOXIDE LEVEL 31 MEQ/L (21-32); CHLORIDE LEVEL 107 MEQ/L (98-107); CHOLESTEROL LEVEL 89 MG/DL (<200); CHOLESTEROL RISK RATIO 2.119 (<5); CREATININE FOR GFR 0.59 MG/DL (0.70-1.30); FERRITIN 177 NG/ML (26-388); FREE T4 1.06 NG/DL (0.76-1.46); GLOMERULAR FILTRATION RATE > 60.0 (>60); GLUCOSE, FASTING 109 MG/DL (70-100); HDL CHOLESTEROL 42 MG/DL (>40); IRON (FE) 118 UG/DL (65-175); NON-HDL-C 47 MG/DL; PERCENT SATURATION 38.9 % (19.7-50.0); POTASSIUM SERUM 4.6 MEQ/L (3.5-5.1); SODIUM LEVEL 143 MEQ/L (136-145); THYROID STIMULATING HORMONE 0.622 uIU/ML (0.358-3.740); TOTAL IRON BINDING CAPACITY 303 UG/DL (250-450); TRIGLYCERIDES LEVEL 40 MG/DL (<150)
[2017-05-30 12:07] LABS: TOTAL 25(OH) VITAMIN D 16.4 NG/ML (30.0-100.0)
[2017-05-30 12:08] LABS: FOLATE 18.9 NG/ML (>5.4); VITAMIN B12 LEVEL 458 PG/ML (247-911)
[2017-06-04 10:20] LABS: VITAMIN B1 LEVEL WHOLE BLOOD 127.4 nmol/L (66.5-200.0)
== END ==
LOC: M LAB 09:53
DX: E66.01 Morbid (severe) obesity due to excess calories (principal)

== ENCOUNTER → 2018-07-02 | Outpatient (CLI) | payer BC ==
[~2018-07-02] MED LIST changes: +HYDR-3715 PO; -NORCOTAB PO
[2018-07-02 12:59] LABS: BASO % 0.2 % (0.0-1.0); EOS # 0.1 10^3/uL (0.0-0.50); HEMOGLOBIN 14.5 g/dl (13.5-17.5); LYMPH # 2.2 10^3/uL (1.5-4.5); LYMPH % 34.9 % (24.0-44.0); MEAN CORPUSCULAR HGB CONC 34.5 g/dl (32.0-36.5); MEAN CORPUSCULAR VOLUME 89.7 fl (80.0-96.0); MONO # 0.5 10^3/uL (0.0-0.8); MONO % 7.7 % (0.0-5.0); NEUTROPHILS # 3.5 10^3/uL (1.8-7.7); PLATELET COUNT, AUTOMATED 219 10^3/uL (150-450); RED BLOOD COUNT 4.68 10^6/uL (4.30-6.10); WHITE BLOOD COUNT 6.4 10^3/uL (4.0-10.0)
[2018-07-02 13:11] LABS: ALBUMIN 4.2 GM/DL (3.2-5.2); ALT/SGPT 35 U/L (12-78); BILIRUBIN,TOTAL 0.8 MG/DL (0.2-1.0); BLOOD UREA NITROGEN 12 MG/DL (7-18); CALCIUM LEVEL 9.3 MG/DL (8.5-10.1); CARBON DIOXIDE LEVEL 30 MEQ/L (21-32); CHLORIDE LEVEL 105 MEQ/L (98-107); CHOLESTEROL LEVEL 101 MG/DL (<200); CHOLESTEROL RISK RATIO 2.729 (<5); CREATININE FOR GFR 0.58 MG/DL (0.70-1.30); GLOMERULAR FILTRATION RATE > 60.0 (>60); GLUCOSE, FASTING 119 MG/DL (70-100); HDL CHOLESTEROL 37 MG/DL (>40); LDL CHOLESTEROL 51 MG/DL (<100); NON-HDL-C 64 MG/DL; POTASSIUM SERUM 4.1 MEQ/L (3.5-5.1); SODIUM LEVEL 141 MEQ/L (136-145); TOTAL 25(OH) VITAMIN D 19.5 NG/ML (30.0-100.0); TOTAL PROTEIN 6.8 GM/DL (6.4-8.2); TRIGLYCERIDES LEVEL 64 MG/DL (<150)
[2018-07-02 13:27] LABS: HEMOGLOBIN A1c 6.2 %
== END ==
LOC: M WUC 09:02
PROVIDERS: ATTEND Nurse Practitioner Family
DX: Z13.220 Encounter for screening for lipoid disorders (principal); I10 Essential (primary) hypertension; E55.9 Vitamin D deficiency, unspecified; E11.9 Type 2 diabetes mellitus without complications

== ENCOUNTER 2018-12-26 06:50 | Emergency (ER) | payer BC ==
[~2018-12-26] VITALS: Ht 167.6 cm; Wt 86.4 kg
[2018-12-26] MEDS ORDERED: GABA-1171 PO (07:02)
[2018-12-26] MEDS ORDERED: methylPREDNISolone INJ 125 MG/2 ML VIAL (J2930) IV ONE (07:30)
[2018-12-26] MEDS ORDERED: KETOROLAC 30 MG/ML VIAL (J1885) IV ONE (07:30)
[2018-12-26] MEDS ORDERED: diazePAM 10 MG TAB PO ONE (07:30)
--- NOTE | 2018-12-26 08:10 | REP ---
Lumbar spine five views: There are no comparisons. Comparison is the MRI lumbar spine dated 08/11/2015. Vertebral body heights, interspacing alignment are normal. The pedicles and facets are unremarkable. The sacroiliac articulations are unremarkable. There is no spondylolysis or spondylolisthesis. Impression: Negative plain film study of the lumbar spine. Electronically Signed by Sukhwinder Pierce MD 12/26/2018 08:00 A
[2018-12-26] MEDS ORDERED: PRED20TA PO (08:29)
[2018-12-26] MEDS ORDERED: ZANA4CAP PO (08:29)
[2018-12-26 08:41] VITALS: BP 133/62
== END 2018-12-26 08:58 | disposition home or self-care (01) ==
LOC: M ED 06:50
DX: M54.42 Lumbago with sciatica, left side (principal); Z98.84 Bariatric surgery status; Z87.891 Personal history of nicotine dependence; J45.909 Unspecified asthma, uncomplicated; E11.9 Type 2 diabetes mellitus without complications; Z79.899 Other long term (current) drug therapy; Z88.0 Allergy status to penicillin; Z88.2 Allergy status to sulfonamides
CPT/HCPCS: 72110; 96374; 96375; 99284; J1885; J2930

== ENCOUNTER → 2019-02-16 | Outpatient (CLI) | payer BC ==
[~2019-02-16] MED LIST changes: +GABA-1171 PO; +PRED20TA PO; +ZANA4CAP PO
[2019-02-16 14:08] LABS: BASO % 0.3 % (0.0-1.0); EOS # 0.1 10^3/uL (0.0-0.5); EOS % 2.1 % (0.0-3.0); HEMATOCRIT 43.5 % (42.0-52.0); HEMOGLOBIN 14.7 g/dl (13.5-17.5); LYMPH # 2.4 10^3/uL (1.5-5.0); LYMPH % 36.4 % (24.0-44.0); MEAN CORPUSCULAR HEMOGLOBIN 31.5 pg (27.0-33.0); MEAN CORPUSCULAR HGB CONC 33.8 g/dl (32.0-36.5); MEAN CORPUSCULAR VOLUME 93.1 fl (80.0-96.0); MONO # 0.5 10^3/uL (0.0-0.8); NEUTROPHILS # 3.5 10^3/uL (1.5-8.5); NEUTROPHILS % 52.9 % (36.0-66.0); PLATELET COUNT, AUTOMATED 238 10^3/uL (150-450); RED BLOOD COUNT 4.67 10^6/uL (4.30-6.10); WHITE BLOOD COUNT 6.5 10^3/uL (4.0-10.0)
[2019-02-16 14:18] LABS: ALT/SGPT 53 U/L (12-78); BILIRUBIN,TOTAL 0.7 MG/DL (0.2-1.0); BLOOD UREA NITROGEN 10 MG/DL (7-18); CALCIUM LEVEL 8.9 MG/DL (8.5-10.1); CARBON DIOXIDE LEVEL 31 MEQ/L (21-32); CHLORIDE LEVEL 106 MEQ/L (98-107); CREATININE FOR GFR 0.64 MG/DL (0.70-1.30); FERRITIN 160 NG/ML (26-388); FREE T4 0.91 NG/DL (0.76-1.46); GLOMERULAR FILTRATION RATE > 60.0 (>60); GLUCOSE, FASTING 168 MG/DL (70-100); IRON (FE) 150 UG/DL (65-175); PERCENT SATURATION 48.9 % (19.7-50.0); POTASSIUM SERUM 4.5 MEQ/L (3.5-5.1); SODIUM LEVEL 142 MEQ/L (136-145); THYROID STIMULATING HORMONE 0.737 uIU/ML (0.358-3.740); TOTAL IRON BINDING CAPACITY 307 UG/DL (250-450); TOTAL PROTEIN 6.9 GM/DL (6.4-8.2)
[2019-02-16 14:20] LABS: PTH INTACT 60.3 PG/ML (18.5-88.0); TOTAL 25(OH) VITAMIN D 30.6 NG/ML (30.0-100.0); VITAMIN B12 LEVEL 518 PG/ML (247-911)
[2019-02-16 15:04] LABS: HEMOGLOBIN A1c 7.3 %
== END ==
LOC: M PLALAB 08:50
PROVIDERS: ATTEND Physician Assistant Medical
DX: E66.9 Obesity, unspecified (principal); E55.9 Vitamin D deficiency, unspecified; Z98.84 Bariatric surgery status

== ENCOUNTER → 2019-11-28 | Outpatient (CLI) | payer BC ==
[~2019-11-28] MED LIST changes: -ENAL20TA PO; +ENAL20TA11 PO; +METF-838
[2019-11-28 12:34] LABS: BASO % 0.4 % (0.0-1.0); EOS # 0.2 10^3/uL (0.0-0.5); HEMATOCRIT 45.9 % (42.0-52.0); HEMOGLOBIN 15.9 g/dl (13.5-17.5); LYMPH # 2.1 10^3/uL (1.5-5.0); LYMPH % 26.4 % (24.0-44.0); MEAN CORPUSCULAR HEMOGLOBIN 30.4 pg (27.0-33.0); MEAN CORPUSCULAR HGB CONC 34.6 g/dl (32.0-36.5); MEAN CORPUSCULAR VOLUME 87.8 fl (80.0-96.0); MONO # 0.5 10^3/uL (0.0-0.8); MONO % 6.2 % (0.0-5.0); NEUTROPHILS # 5.1 10^3/uL (1.5-8.5); NEUTROPHILS % 64.5 % (36.0-66.0); PLATELET COUNT, AUTOMATED 276 10^3/uL (150-450); RED BLOOD COUNT 5.23 10^6/uL (4.30-6.10); WHITE BLOOD COUNT 7.9 10^3/uL (4.0-10.0)
[2019-11-28 12:39] LABS: ALBUMIN 4.1 GM/DL (3.2-5.2); ALT/SGPT 51 U/L (12-78); BILIRUBIN,TOTAL 0.5 MG/DL (0.2-1.0); BLOOD UREA NITROGEN 12 MG/DL (7-18); CALCIUM LEVEL 9.2 MG/DL (8.5-10.1); CARBON DIOXIDE LEVEL 29 MEQ/L (21-32); CHLORIDE LEVEL 104 MEQ/L (98-107); CHOLESTEROL LEVEL 117 MG/DL (<200); CHOLESTEROL RISK RATIO 3.162 (<5); CREATININE FOR GFR 0.71 MG/DL (0.70-1.30); FERRITIN 122 NG/ML (26-388); GLOMERULAR FILTRATION RATE > 60.0 (>60); GLUCOSE, FASTING 199 MG/DL (70-100); HDL CHOLESTEROL 37 MG/DL (>40); IRON (FE) 80 UG/DL (65-175); LDL CHOLESTEROL 55 MG/DL (<100); MAGNESIUM LEVEL 1.8 MG/DL (1.8-2.4); NON-HDL-C 80 MG/DL; PERCENT SATURATION 24.3 % (19.7-50.0); POTASSIUM SERUM 4.2 MEQ/L (3.5-5.1); SODIUM LEVEL 139 MEQ/L (136-145); TOTAL IRON BINDING CAPACITY 329 UG/DL (250-450); TOTAL PROTEIN 7.2 GM/DL (6.4-8.2); TRIGLYCERIDES LEVEL 125 MG/DL (<150)
[2019-11-28 12:51] LABS: HEMOGLOBIN A1c 8.6 %
[2019-11-30 10:57] LABS: VITAMIN B12 LEVEL 529 PG/ML
[2019-11-30 11:02] LABS: FOLATE 23.5 NG/ML
== END ==
LOC: M WUC 08:48
PROVIDERS: ATTEND Physician Assistant
DX: R73.01 Impaired fasting glucose (principal); Z98.84 Bariatric surgery status; Z13.220 Encounter for screening for lipoid disorders

== ENCOUNTER 2020-01-06 02:31 | Emergency (ER) | payer BC ==
[~2020-01-06] VITALS: Ht 167.6 cm; Wt 88.6 kg
[~2020-01-06 02:31] MED LIST changes: -METF-838
[2020-01-06] MEDS ORDERED: METF-838 (02:55)
--- NOTE | 2020-01-06 03:12 | REPVR ---
PROCEDURE INFORMATION: Exam: XR Chest, 1 View Exam date and time: 01/06/2020 2:46 AM Age: 29 years old Clinical indication: Other: Chest pain TECHNIQUE: Imaging protocol: XR of the chest Views: 1 view. COMPARISON: CR Chest, 2 view PA, Lat 01/11/2016 9:27 AM FINDINGS: Lungs: Unremarkable. No consolidation. Pleural space: Unremarkable. No pleural effusion. No pneumothorax. Heart/Mediastinum: Unremarkable. No cardiomegaly. Bones/joints: Unremarkable. Soft tissues: There are moderately generous overlying soft tissues. IMPRESSION: Negative chest without significant change from 01/11/2016. Electronically signed by: Edwin Barrera On 01/06/2020 03:12:38 AM
[2020-01-06 04:37] LABS: BASO % 0.4 % (0.0-1.0); EOS # 0.2 10^3/uL (0.0-0.5); EOS % 2.8 % (0.0-3.0); HEMATOCRIT 41.2 % (42.0-52.0); HEMOGLOBIN 14.2 g/dl (13.5-17.5); LYMPH # 1.8 10^3/uL (1.5-5.0); LYMPH % 21.4 % (24.0-44.0); MEAN CORPUSCULAR HEMOGLOBIN 29.9 pg (27.0-33.0); MEAN CORPUSCULAR HGB CONC 34.5 g/dl (32.0-36.5); MEAN CORPUSCULAR VOLUME 86.7 fl (80.0-96.0); MONO # 0.6 10^3/uL (0.0-0.8); NEUTROPHILS # 5.6 10^3/uL (1.5-8.5); NEUTROPHILS % 67.9 % (36.0-66.0); PLATELET COUNT, AUTOMATED 240 10^3/uL (150-450); RED BLOOD COUNT 4.75 10^6/uL (4.30-6.10); WHITE BLOOD COUNT 8.3 10^3/uL (4.0-10.0)
[2020-01-06 05:17] LABS: BLOOD UREA NITROGEN 12 MG/DL (7-18); CALCIUM LEVEL 8.5 MG/DL (8.5-10.1); CARBON DIOXIDE LEVEL 29 MEQ/L (21-32); CHLORIDE LEVEL 105 MEQ/L (98-107); CK-MB VALUE MASS 1.6 NG/ML (<3.6); CPK CREATINE PHOSPHOKINASE 100 U/L (39-308); GLOMERULAR FILTRATION RATE > 60.0 (>60); GLUCOSE, FASTING 186 MG/DL (70-100); MAGNESIUM LEVEL 1.7 MG/DL (1.8-2.4); POTASSIUM SERUM 3.9 MEQ/L (3.5-5.1); SODIUM LEVEL 140 MEQ/L (136-145); TROPONIN I < 0.02 NG/ML (< 0.10)
[2020-01-06 06:30] VITALS: BP 126/61
--- NOTE | 2020-01-06 19:23 | ECGEPIP ---
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
== END 2020-01-06 06:50 | disposition home or self-care (01) ==
LOC: M ED 02:31
DX: R00.2 Palpitations (principal); E11.9 Type 2 diabetes mellitus without complications; J45.909 Unspecified asthma, uncomplicated; Z98.84 Bariatric surgery status; Z79.84 Long term (current) use of oral hypoglycemic drugs; Z79.899 Other long term (current) drug therapy; Z88.0 Allergy status to penicillin; Z88.2 Allergy status to sulfonamides

== ENCOUNTER → 2020-04-24 | Outpatient (CLI) | payer BC ==
[~2020-04-24] MED LIST changes: +METF-838
[2020-04-24 12:12] LABS: ALBUMIN 3.9 GM/DL (3.2-5.2); ALT/SGPT 42 U/L (12-78); BILIRUBIN,TOTAL 0.4 MG/DL (0.2-1.0); BLOOD UREA NITROGEN 10 MG/DL (7-18); CALCIUM LEVEL 9.5 MG/DL (8.5-10.1); CARBON DIOXIDE LEVEL 34 MEQ/L (21-32); CHLORIDE LEVEL 104 MEQ/L (98-107); CREATININE FOR GFR 0.62 MG/DL (0.70-1.30); GLOMERULAR FILTRATION RATE > 60.0 (>60); GLUCOSE, FASTING 229 MG/DL (70-100); POTASSIUM SERUM 4.6 MEQ/L (3.5-5.1); SODIUM LEVEL 140 MEQ/L (136-145)
[2020-04-24 12:28] LABS: MALB URINE SIEMENS 12.7 MG/L
[2020-04-24 16:34] LABS: HEMOGLOBIN A1c 8.4 %
== END ==
LOC: M PLALAB 08:26
PROVIDERS: ATTEND Physician Assistant
DX: E11.65 Type 2 diabetes mellitus with hyperglycemia (principal)

== ENCOUNTER → 2020-07-24 | Outpatient (CLI) | payer BC ==
[2020-07-24 08:16] LABS: BASO % 0.5 % (0.0-1.0); EOS # 0.5 10^3/uL (0.0-0.5); EOS % 6.2 % (0.0-3.0); HEMOGLOBIN 15.4 g/dl (13.5-17.5); LYMPH # 2.6 10^3/uL (1.5-5.0); LYMPH % 30.4 % (24.0-44.0); MEAN CORPUSCULAR HEMOGLOBIN 30.5 pg (27.0-33.0); MEAN CORPUSCULAR HGB CONC 34.2 g/dl (32.0-36.5); MEAN CORPUSCULAR VOLUME 89.1 fl (80.0-96.0); MONO # 0.6 10^3/uL (0.0-0.8); MONO % 7.1 % (2.0-8.0); NEUTROPHILS # 4.7 10^3/uL (1.5-8.5); NEUTROPHILS % 55.4 % (36.0-66.0); PLATELET COUNT, AUTOMATED 252 10^3/uL (150-450); RED BLOOD COUNT 5.05 10^6/uL (4.30-6.10); WHITE BLOOD COUNT 8.5 10^3/uL (4.0-10.0)
[2020-07-24 08:51] LABS: ALBUMIN 4.1 GM/DL (3.2-5.2); ALT/SGPT 43 U/L (12-78); BILIRUBIN,TOTAL 0.6 MG/DL (0.2-1.0); BLOOD UREA NITROGEN 13 MG/DL (7-18); CALCIUM LEVEL 9.9 MG/DL (8.5-10.1); CARBON DIOXIDE LEVEL 31 MEQ/L (21-32); CHLORIDE LEVEL 105 MEQ/L (98-107); CREATININE FOR GFR 0.68 MG/DL (0.70-1.30); GLOMERULAR FILTRATION RATE > 60.0 (>60); GLUCOSE, FASTING 163 MG/DL (70-100); POTASSIUM SERUM 4.3 MEQ/L (3.5-5.1); SODIUM LEVEL 141 MEQ/L (136-145); TOTAL PROTEIN 7.1 GM/DL (6.4-8.2)
[2020-07-24 13:27] LABS: HEMOGLOBIN A1c 6.3 %
== END ==
LOC: M LAB 07:45
PROVIDERS: ATTEND Physician Assistant
DX: E11.9 Type 2 diabetes mellitus without complications (principal)

== ENCOUNTER → 2020-10-27 | Outpatient (CLI) | payer BC ==
[2020-10-27 10:20] LABS: HEMOGLOBIN A1c 5.7 %
[2020-10-27 10:30] LABS: BLOOD UREA NITROGEN 8 MG/DL (7-18); CALCIUM LEVEL 9.7 MG/DL (8.5-10.1); CARBON DIOXIDE LEVEL 29 MEQ/L (21-32); CHLORIDE LEVEL 106 MEQ/L (98-107); CREATININE FOR GFR 0.59 MG/DL (0.70-1.30); GLOMERULAR FILTRATION RATE > 60.0 (>60); GLUCOSE, FASTING 117 MG/DL (70-100); POTASSIUM SERUM 4.1 MEQ/L (3.5-5.1); SODIUM LEVEL 141 MEQ/L (136-145)
== END ==
LOC: M LAB 08:36
PROVIDERS: ATTEND Physician Assistant
DX: E11.9 Type 2 diabetes mellitus without complications (principal)

== ENCOUNTER → 2020-10-31 | Outpatient (CLI) | payer BC ==
--- NOTE | 2020-10-31 10:09 | REP ---
INDICATION: SPRAIN OF RIBS. COMPARISON: The frontal view the chest has been compared to the portable examination of 01/06/2020 which is the latest prior TECHNIQUE: Four views of the ribs with frontal view of the chest FINDINGS: Multiple views of the left ribs show no fracture or osseous lesion. The accompanying frontal view of the chest shows no cardiomegaly, infiltrates, effusions, or pneumothoraces. IMPRESSION: Negative left rib series. <Electronically signed by Hunter Delgado > 10/31/20 [id number]
== END ==
LOC: M ADAMS 08:07
PROVIDERS: ATTEND Physician Assistant
DX: S23.41XA Sprain of ribs, initial encounter (principal); X58.XXXA Exposure to other specified factors, initial encounter; Y92.9 Unspecified place or not applicable; Y93.9 Activity, unspecified; Y99.9 Unspecified external cause status

== ENCOUNTER → 2021-09-12 | Outpatient (CLI) | payer BC ==
[2021-09-12 09:03] LABS: BASO # 0.1 10^3/uL (0.0-0.2); BASO % 0.5 % (0.0-1.0); EOS # 1.2 10^3/uL (0.0-0.5); EOS % 11.2 % (0.0-3.0); HEMATOCRIT 41.7 % (42.0-52.0); HEMOGLOBIN 14.8 g/dl (13.5-17.5); LYMPH % 19.8 % (24.0-44.0); MEAN CORPUSCULAR HEMOGLOBIN 31.8 pg (27.0-33.0); MEAN CORPUSCULAR HGB CONC 35.5 g/dl (32.0-36.5); MEAN CORPUSCULAR VOLUME 89.5 fl (80.0-96.0); MONO # 0.6 10^3/uL (0.0-0.8); MONO % 5.6 % (2.0-8.0); NEUTROPHILS # 6.4 10^3/uL (1.5-8.5); NEUTROPHILS % 62.5 % (36.0-66.0); PLATELET COUNT, AUTOMATED 280 10^3/uL (150-450); RED BLOOD COUNT 4.66 10^6/uL (4.30-6.10); WHITE BLOOD COUNT 10.3 10^3/uL (4.0-10.0)
[2021-09-12 09:31] LABS: ALBUMIN 3.8 GM/DL (3.2-5.2); ALT/SGPT 34 U/L (12-78); BILIRUBIN,TOTAL 0.6 MG/DL (0.2-1.0); BLOOD UREA NITROGEN 8 MG/DL (7-18); CALCIUM LEVEL 9.9 MG/DL (8.5-10.1); CARBON DIOXIDE LEVEL 29 MEQ/L (21-32); CHLORIDE LEVEL 107 MEQ/L (98-107); CREATININE FOR GFR 0.71 MG/DL (0.70-1.30); FERRITIN 81 NG/ML (26-388); GLOMERULAR FILTRATION RATE > 60.0 (>60); GLUCOSE, FASTING 173 MG/DL (70-100); IRON (FE) 156 UG/DL (65-175); MAGNESIUM LEVEL 1.9 MG/DL (1.8-2.4); PERCENT SATURATION 49.5 % (19.7-50.0); POTASSIUM SERUM 4.6 MEQ/L (3.5-5.1); SODIUM LEVEL 143 MEQ/L (136-145); TOTAL IRON BINDING CAPACITY 315 UG/DL (250-450)
[2021-09-12 10:08] LABS: HEMOGLOBIN A1c 6.4 %
[2021-09-12 12:27] LABS: VITAMIN B12 LEVEL 637 PG/ML
== END ==
LOC: M LAB 08:39
PROVIDERS: ATTEND Physician Assistant
DX: E11.9 Type 2 diabetes mellitus without complications (principal)

== ENCOUNTER → 2022-04-26 | Outpatient (REF) | payer BC | LOC: M SMT 13:47 | PROVIDERS: ATTEND Urology | DX: Z30.2 Encounter for sterilization (principal) ==

== ENCOUNTER → 2023-04-19 | Outpatient (CLI) | payer BC ==
[~2023-04-19] MED LIST changes: +ENAL1TAB52 PO; -ENAL20TA11 PO
[2023-04-19 14:14] LABS: BASO % 0.4 % (0.0-1.0); EOS # 0.5 10^3/uL (0.0-0.5); EOS % 5.4 % (0.0-3.0); HEMATOCRIT 43.1 % (42.0-52.0); HEMOGLOBIN 15.4 g/dl (13.5-17.5); LYMPH # 2.5 10^3/uL (1.5-5.0); LYMPH % 27.2 % (24.0-44.0); MEAN CORPUSCULAR HEMOGLOBIN 31.3 pg (27.0-33.0); MEAN CORPUSCULAR HGB CONC 35.7 g/dl (32.0-36.5); MEAN CORPUSCULAR VOLUME 87.6 fl (80.0-96.0); MONO # 0.5 10^3/uL (0.0-0.8); MONO % 4.9 % (2.0-8.0); NEUTROPHILS # 5.6 10^3/uL (1.5-8.5); NEUTROPHILS % 61.9 % (36.0-66.0); PLATELET COUNT, AUTOMATED 285 10^3/uL (150-450); RED BLOOD COUNT 4.92 10^6/uL (4.30-6.10); WHITE BLOOD COUNT 9.1 10^3/uL (4.0-10.0)
[2023-04-19 14:29] LABS: ERYTHROCYTE SEDIMENTATION RATE 5 mm/hr (0-15)
[2023-04-19 14:36] LABS: C REACTIVE PROTEIN QUANTITATIV < 0.40 MG/DL (<1.0)
[2023-04-19 14:37] LABS: LDH LACTATE DEHYDROGENASE 133 U/L (120-246)
[2023-04-19 14:54] LABS: MONO REFLEX EBV COMP NEGATIVE (NEGATIVE)
== END ==
LOC: M LAB 13:20
PROVIDERS: ATTEND Physician Assistant
DX: D72.89 Other specified disorders of white blood cells (principal)

== ENCOUNTER → 2024-03-20 | Outpatient (CLI) | payer BC ==
[2024-03-20 10:19] LABS: BASO % 0.5 % (0.0-1.0); EOS # 0.2 10^3/uL (0.0-0.5); EOS % 2.8 % (0.0-3.0); HEMATOCRIT 47.1 % (42.0-52.0); HEMOGLOBIN 16.6 g/dl (13.5-17.5); LYMPH # 2.4 10^3/uL (1.5-5.0); LYMPH % 29.3 % (24.0-44.0); MEAN CORPUSCULAR HGB CONC 35.2 g/dl (32.0-36.5); MEAN CORPUSCULAR VOLUME 87.9 fl (80.0-96.0); MONO # 0.5 10^3/uL (0.0-0.8); MONO % 6.6 % (2.0-8.0); NEUTROPHILS # 4.9 10^3/uL (1.5-8.5); NEUTROPHILS % 60.3 % (36.0-66.0); PLATELET COUNT, AUTOMATED 273 10^3/uL (150-450); RED BLOOD COUNT 5.36 10^6/uL (4.30-6.10); WHITE BLOOD COUNT 8.1 10^3/uL (4.0-10.0)
[2024-03-20 10:45] LABS: IRON (FE) 146 UG/DL (65-175)
[2024-03-20 10:52] LABS: FERRITIN 18.8 NG/ML (10.5-307.3); VITAMIN B12 LEVEL 527 PG/ML (211-911)
[2024-03-20 10:54] LABS: ALBUMIN 4.1 G/DL (3.2-5.2); ALKALINE PHOSPHATASE 109 U/L (40-129); ALT/SGPT 46 U/L (7.0-40); AST/SGOT 17 U/L (<34); BILIRUBIN,TOTAL 0.6 MG/DL (0.3-1.2); BLOOD UREA NITROGEN 11 MG/DL (9-23); CALCIUM LEVEL 9.8 MG/DL (8.5-10.1); CARBON DIOXIDE LEVEL 31 MMOL/L (20-31); CHLORIDE LEVEL 104 MMOL/L (98-107); CHOLESTEROL LEVEL 140 MG/DL (<200); CHOLESTEROL RISK RATIO 3.23 (<5); CREATININE FOR GFR 0.57 MG/DL (0.70-1.30); GLOMERULAR FILTRATION RATE > 60.0 (>60); GLUCOSE, FASTING 178 MG/DL (60-100); HDL CHOLESTEROL 43.3 MG/DL (>40); LDL CHOLESTEROL 79.5 MG/DL (<100); NON-HDL-C 96.7 MG/DL; POTASSIUM SERUM 4.5 MMOL/L (3.5-5.1); SODIUM LEVEL 142 MMOL/L (136-145); TOTAL PROTEIN 7.3 G/DL (5.7-8.2); TRIGLYCERIDES LEVEL 86 MG/DL (<150)
[2024-03-20 10:59] LABS: HEMOGLOBIN A1c 7.5 % (4.0-6.0)
== END ==
LOC: M LAB 09:59
PROVIDERS: ATTEND Physician Assistant
DX: E11.9 Type 2 diabetes mellitus without complications (principal); Z98.84 Bariatric surgery status

== ENCOUNTER → 2024-08-11 | Outpatient (REF) | payer BC | LOC: M LAB REF 16:46 | PROVIDERS: ATTEND Physician Assistant | DX: L02.214 Cutaneous abscess of groin (principal) ==